=== PATIENT | male | born 1975 | race Caucasian/White ===

== ENCOUNTER 2018-11-29 12:55 | Observation (INO) | payer OTHER ==
[~2018-11-29] VITALS: Ht 188 cm; Wt 107.3 kg
[2018-11-29] MEDS ORDERED: fentaNYL CITR 100 MCG/2 ML AMP IM ONE (13:05)
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
--- NOTE | 2018-11-29 14:09 | RADIOLOGY IMAGING REPORT ---
[place] [facility] [place] NAME: Josué Bey : 1975 MR: [id number] V: [id number] EXAM DATE: ORDERING PHYSICIAN: JACOBY ESCALANTE TECHNOLOGIST: Location: [facility] [place] Patient: Josué Bey : 1975 Visit/Account:[id number] Date of Sevice: 11/29/2018 EXAMINATION: CT Chest Without Contrast 11/29/2018 1:05 PM HISTORY: trauma TECHNIQUE: Spiral scan was obtained through the chest without contrast. One of the following dose optimization techniques was utilized in the performance of this exam: Autom ated exposure control; adjustment of the mA and/or kV according to the patient's size; or use of an i terative reconstruction technique. Specific details can be referenced in the facility's radiology C T exam operational policy. COMPARISON STUDIES: Chest x-ray 07/31/2016. FINDINGS: Lungs / pleura: No parenchymal contusion or infiltrate. No pneumothorax. Mediastinum / patricia: negative Heart / pericardium: Minimal pericardial fluid. Vessels: negative Musculoskeletal / Body wall: Nondisplaced fractures in the anterolateral right second through seventh ribs. Comminuted fracture in the midshaft of the right clavicle. No visible scapular or shoulder fra cture. No vertebral injury. Mild levoscoliotic curvature. Lymph node assessment: negative IMPRESSION: 1. Nondisplaced fractures in the anterolateral right second through seventh ribs. 2. Right clavicle fracture. 3. No other acute finding. Report Dictated By: Luis Rivera MD at 11/29/2018 1:57 PM Report E-Signed By: Luis Rivera MD at 11/29/2018 2:04 PM WSN:[id number]
[2018-11-29] MEDS ORDERED: NS(*) 0.9% 1000 ML BAG 1,000 ML IV ONE (14:45)
[2018-11-29] MEDS ORDERED: ONDANSETRON 4 MG/2 ML VIAL IVP ONE (14:45)
[2018-11-29 15:11] VITALS: BP 122/75
[2018-11-29] MEDS ORDERED: LORA1TAB69 PO (15:27)
[2018-11-29 15:30] LABS: PLATELET COUNT, AUTOMATED 224 K/uL (150-450)
[2018-11-29] MEDS ORDERED: ONDANSETRON 4 MG/2 ML VIAL IVP PRN (15:45)
[2018-11-29] MEDS ORDERED: HYDROmorphone HCL 2 MG/ML SDV IVP PRN (15:45)
[2018-11-29] MEDS ORDERED: KCL/D1/2NS 20 MEQ 1000 ML 1,000 ML IV SCH ×2 (15:45→18:06)
[2018-11-29] MEDS: ACETAMINOPHEN 325 MG TAB PO PRN ×2 (16:26→23:42)
[2018-11-29] MEDS: IBUPROFEN 200 MG TAB PO PRN (16:26)
[2018-11-29] MEDS ORDERED: traMADol 50 MG TAB PO PRN (18:10)
[2018-11-29] MEDS ORDERED: FLUSH 10 ML SYR IVP PRN (18:10)
[2018-11-29] MEDS ORDERED: NALOXONE HCL 0.4 MG/ML VIAL IVP PRN (18:10)
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
[2018-11-29 18:37] VITALS: BP 113/71
[2018-11-29] MEDS: FAMOTIDINE 20 MG TAB PO SCH (20:44)
[2018-11-29] MEDS: DOCUSATE SODIUM 100 MG CAP PO SCH (20:44)
[2018-11-29 23:21] VITALS: BP 107/60
[2018-11-30] MEDS: IBUPROFEN 200 MG TAB PO PRN ×2 (00:21→09:10)
[2018-11-30 03:11] VITALS: BP 107/61
[2018-11-30 05:56] LABS: PLATELET COUNT, AUTOMATED 199 K/uL (150-450)
[2018-11-30 06:50] VITALS: BP 105/62
[2018-11-30] MEDS ORDERED: TRAM-420 PO (08:24)
[2018-11-30] MEDS ORDERED: DOCU-202 PO (08:24)
--- NOTE | 2018-11-30 08:28 | Short(Outpt) Discharge Summary ---
Discharge Summary Reason for Hosp/Final Diag: (1) Multiple rib fractures Status: Acute Hospital Course & Plan: 11/29/18: Admit, aggressive pulmonary hygiene, ambulation, IS, pain control. H2 moe for GI prophylaxis, lovenox for VTE prophylaxis. 11/30/18: Doing well. No further lightheadedness, syncope or presyncopal episodes. Pain controlled. Tolerating diet. Will d/c to home. (2) Clavicular fracture Status: Acute Hospital Course & Plan: 11/29/18: Will maintain right arm in sling to immobilize clavicle and will start with non-operative management. If fails to heal over the next 6 weeks then will refer to orthopedic surgery to consider ORIF. (3) Syncope Status: Acute Hospital Course & Plan: Admit of observation, IV fluids. Will have him mobilize under supervision this evening after rehydration. Departure Discharge to: Home, Self Care Discharge Instructions Home Meds Active Scripts Tramadol Hcl (TRAMADOL HCL) 50 Mg Tablet, 1 TAB PO Q4H PRN for PAIN, #10 TAB 0 Refills Prov:MANDY HERNANDEZ MD 11/30/18 Docusate Sodium (DOCUSATE SODIUM) 100 Mg Capsule, 1 CAP PO BID, #30 CAPSULE 0 Refills Prov:MANDY HERNANDEZ MD 11/30/18 Reported Medications Loratadine/Pseudoephedrine (CLARITIN-D 24 HOUR TABLET) 1 Each Tab.er.24h, 1 EACH PO DAILY 11/29/18 Follow up Referrals: General Surgery - 12/15/18 @ Surgery, General with MANDY HERNANDEZ MD You have a follow up appointment scheduled with Dr. Hernandez on 12/15/18, at 10:30am. Diet: Regular Activity: As Tolerated Special Instructions: Use the incentive spirometer at home every 30 minutes while sitting for more than 30 minutes. Wear the sling on your right arm at all times other than while bathing for 1 month. I have made an appointment to see you in my office in 2 weeks, please get an x-ray of your clavicle just before that appointment. Problem Qualifiers (1) Multiple rib fractures: Encounter type: initial encounter Fracture type: closed Laterality: right Qualified Codes: S22.41XA - Multiple fractures of ribs, right side, initial encounter for closed fracture (2) Clavicular fracture: Encounter type: initial encounter Clavicle location: shaft Fracture type: closed Fracture alignment: nondisplaced Laterality: right Qualified Codes: S42.024A - Nondisplaced fracture of shaft of right clavicle, initial encounter for closed fracture (3) Syncope: Syncope type: unspecified Qualified Codes: R55 - Syncope and collapse MANDY HERNANDEZ MD Nov 30, 2018 08:28
[2018-11-30] MEDS ORDERED: ENOXAPARIN 40 MG/0.4ML SYR SC SCH (09:00)
[2018-11-30] MEDS ORDERED: LORATADINE PO SCH (09:00)
[2018-11-30] MEDS ORDERED: PSEUDOEPHEDRINE PO SCH (09:00)
[2018-11-30] MEDS: DOCUSATE SODIUM 100 MG CAP PO SCH (09:01)
[2018-11-30] MEDS: FAMOTIDINE 20 MG TAB PO SCH (09:01)
--- NOTE | 2018-11-30 11:41 | RADIOLOGY IMAGING REPORT ---
FACILITY: [facility] PATIENT NAME: Josué Bey : 1975 MR: [id number] V: [id number] EXAM DATE: ORDERING PHYSICIAN: MANDY HERNANDEZ TECHNOLOGIST: Location: [facility] - [place] Patient: Josué Bey : 1975 Visit/Account:[id number] Date of Sevice: 11/30/2018 Technique: CHEST SINGLE AP HISTORY: Right rib fractures, right clavicle fx Comparison studies: November 29, 2018 FINDINGS: No acute airspace consolidation. No pleural effusion or pneumothorax. Redemonstrated is a n acute, displaced fracture involving the midshaft of the right clavicle as well as multiple acute ri ght-sided rib fractures. Cardiac silhouette is unremarkable. IMPRESSION: 1. No acute cardiopulmonary process. 2. Multiple fractures as above. Report Dictated By: Cristóbal Irizarry DO at 11/30/2018 11:33 AM Report E-Signed By: Cristóbal Irizarry DO at 11/30/2018 11:36 AM WSN:[id number]
[2018-11-30 12:50] VITALS: Ht 188 cm; Wt 107.3 kg
== END 2018-11-30 08:29 | disposition home or self-care (01) ==
LOC: ER 13:35 → MED 14:54 → INTOOBSV 14:54
PROVIDERS: ADMIT Surgery; ATTEND Surgery
DX: S22.41XA Multiple fractures of ribs, right side, initial encounter for closed fracture (principal); R55 Syncope and collapse
CPT/HCPCS: 36415; 71045; 71250; 85025; 96374; 99284; A4565; G0378; J2405; J3010; J3480; J7030; 82040; 82247; 82310; 82374; 82435; 82565; 82947; 84075; 84132; 84155; 84295; 84450; 84460; 84520

== ENCOUNTER → 2018-12-16 | Outpatient (CLI) | payer OTHER ==
[2018-11-30 12:50] VITALS: BMI 30.3
[~2018-12-16] MED LIST: DOCU-202 PO; LORA1TAB69 PO; TRAM-420 PO
--- NOTE | 2018-12-16 14:05 | RADIOLOGY IMAGING REPORT ---
FACILITY: [facility] - [place] PATIENT NAME: Josué Bey : 1975 MR: [id number] V: [id number] EXAM DATE: ORDERING PHYSICIAN: MANDY HERNANDEZ TECHNOLOGIST: Location: [facility] - [place] Patient: Josué Bey : 1975 Visit/Account:[id number] Date of Sevice: 12/16/2018 CLAVICLE RIGHT HISTORY: See Dx Additional history: Fracture follow-up COMPARISON: Comparison chest x-ray 11/30/2018 FINDINGS: Is a mildly comminuted right clavicular midshaft fracture with approximately one bone width displacem ent but no appreciable angulation. Alignment unchanged from previous examination. No evidence of in terval healing. IMPRESSION: Right mid shaft clavicular fracture unchanged in appearance and alignment from prior exam Report Dictated By: Cain Eldridge MD at 12/16/2018 1:55 PM Report E-Signed By: Cain Eldridge MD at 12/16/2018 1:59 PM WSN:[id number]
== END ==
LOC: RAD 13:35
PROVIDERS: ATTEND Surgery
DX: S42.021D Displaced fracture of shaft of right clavicle, subsequent encounter for fracture with routine healing (principal)